=== PATIENT | female | born 1975 | race Caucasian/White ===

== ENCOUNTER → 2023-08-30 07:32 | Outpatient (REF) | payer OTHER, SELFPAY | LOC: HWRAD 07:32 | PROVIDERS: ATTENDING PHYSICIAN Nurse Practitioner | DX: R79.89 Other specified abnormal findings of blood chemistry (principal) | CPT/HCPCS: 76700 ==

== ENCOUNTER → 2025-01-15 07:38 | Outpatient (REF) | payer BC, OTHER, SELFPAY | LOC: HWRAD 07:38 | DX: F17.210 Nicotine dependence, cigarettes, uncomplicated (principal) | CPT/HCPCS: 71271 ==

== ENCOUNTER → 2025-01-19 09:19 | Outpatient (REF) | payer BC, OTHER, SELFPAY | LOC: WDC 09:19 | DX: N63.10 Unspecified lump in the right breast, unspecified quadrant (principal) | CPT/HCPCS: 76642; 77062; 77066 ==